=== PATIENT | male | born 1960 | race Caucasian/White ===

== ENCOUNTER 2024-06-07 08:44 | Day surgery (SDC) | payer BC ==
[2024-06-05 15:10] LABS: Absolute Basophils 0.1 K/uL (0-0.5); Absolute Eosinophils 0.1 K/uL (0-0.5); Absolute Lymphocytes (CBC) 1.7 K/uL (0.7-4.9); Absolute Monocytes 0.8 K/uL (0.1-1.3); Absolute Neutrophil 4.7 K/uL (1.8-8.0); Basophils % 0.7 % (0-1.3); Eosinophils % 1.9 % (0-4.4); Hematocrit 49.5 % (39.6-49.0); Hemoglobin 16.5 g/dL (13.6-17.9); Lymphocytes % 22.9 % (15.3-44.8); MCHC 33.3 g/dL (32.0-36.0); MCV 93.2 fL (80-100); MPV 8.4 fL (7.6-11.3); Monocytes % 11.2 % (3.3-12.3); Neutrophils % 63.3 % (41.7-73.7); Nucleated Red Blood Cells % 0.1 % (0-0); Platelets 194 thou/uL (152-406); RBC Red Blood Cell Count 5.31 M/uL (4.33-5.43); Red Cell Distribution Width 13.7 % (12.1-15.2)
[2024-06-05 15:16] LABS: Anion Gap 8.8 mEq/L (5.0-15.0); Potassium 3.8 mEq/L (3.5-5.1)
[2024-06-07] MEDS ORDERED: Ringers Lactate 1,000 ML IV ONE (09:03)
[2024-06-07] MEDS ORDERED: ONDANSETRON 4 MG/2 ML VIAL ONE (09:44)
[2024-06-07] MEDS ORDERED: ROCURONIUM 50 MG/5 ML VIAL IV ONE (09:44)
[2024-06-07] MEDS ORDERED: LIDOCAINE 2% MPF 5 ML VIAL ONE (09:44)
[2024-06-07] MEDS ORDERED: MIDAZOLAM HCL 2 MG/2 ML INJ ONE (09:44)
[2024-06-07] MEDS ORDERED: FENTANYL CITR 100 MCG/2 ML ONE (09:44)
[2024-06-07] MEDS ORDERED: propofoL 200 MG/20 ML VIAL IV ONE (09:44)
[2024-06-07] MEDS ORDERED: HYDROMORPHONE HCL 1 MG/ML INJ ONE (10:10)
[2024-06-07] MEDS ORDERED: SUGAMMADEX SODIUM 200 MG/2 ML VIAL IV ONE (10:10)
[2024-06-07] MEDS: CEFAZOLIN SODIUM 2 GM/VIAL ONE (10:32)
[2024-06-07] MEDS ORDERED: dexAMETHasone 10 MG/ML VIAL ONE (10:44)
[2024-06-07] MEDS ORDERED: GLYCOPYRROLATE 0.2 MG/ML SYR ONE (10:46)
[2024-06-07] MEDS ORDERED: EPHEDRINE SULF 50 MG/ML VIAL ONE (10:57)
[2024-06-07] MEDS: LIDOCAINE HCL/EPINEPHRINE 20 ML MDV ONE (10:58)
--- NOTE | 2024-06-07 11:42 | P.OP ---
Preoperative diagnosis: Multiple Ventral Abdominal Hernias Postoperative diagnosis: Multiple Ventral Abdominal Hernias Primary procedure: Laparoscopic Ventral Henria Repairs with Mesh Anesthesia: GETA + Local Estimated blood loss: <5cc Specimen: none Findings: ~ 2cm umbilical, 1cm epigastric hernias - adipose incarcerated Complications: None Implants: Bard Ventralite ST x 2, Sorbafix, Absobatack Transferred to: Recovery Room Condition: Good
[2024-06-07] MEDS: HYDROMORPHONE HCL 1 MG/ML INJ ONE (12:01)
[2024-06-07] MEDS: HYDROCODONE/APAP 10/325 TAB ONE (13:00)
[2024-06-07 14:25] VITALS: BP 119/65; TEMP 97.9; O2SAT 96
--- NOTE | 2024-06-07 23:01 | OP ---
Date of Procedure: 06/07/2024 Surgeon: Jason Jha MD, Preoperative Diagnosis: Multiple ventral incisional midline abdominal wall hernias. Postoperative Diagnosis: Multiple ventral incisional midline abdominal wall hernias. Procedures Performed: Laparoscopic repair of multiple ventral hernias. 1.Epigastric, incisional. 2.Umbilical, incisional. Anesthesia: General endotracheal plus local with 1% lidocaine with epinephrine. Estimated Blood Loss: 5 cc. Specimen: None. Findings: Approximately 2 cm incisional umbilical hernia with incarcerated adipose tissue and a 1 cm epigastric hernia with incarcerated adipose tissue. Complications: None. Implants: Bard Ventralight ST mesh with Echo Positioning System 11.4 cm mesh utilized. 2 total mesh es were utilized of the same size. SorbaFix absorbable fixation tacks and AbsorbaTack absorbable fix ation tacks were both utilized. Disposition: The patient was transferred to recovery room in good condition. Procedure In Detail: After informed consent was obtained, patient was brought to the operating room, prepped and draped in the usual sterile fashion. After adequate anesthesia was achieved. I anesthe tized an area in the left upper quadrant down to subcutaneous tissue. A 5 mm 0-degree optical trocar was introduced in the abdomen without incident or complication. Insufflation was obtained to 15 mmH g at this time. There was no injury to vital structures upon entering the abdomen. Additional troca r was placed in the left mid abdomen. This was 12 mm trocar placed under direct vision without incid ent or complication. At this point, I swept back all preperitoneal fat and removed incarcerated adip ose tissue from the umbilical as well as the epigastric hernia, which were both incisional hernias fr om previous surgery. After this was swept back and allowed for appropriate landing zone using the [employer] gaSure device, I deployed a 11.4 cm Bard Ventralight mesh with Echo Positioning System in the umbilic al position. I then secured to the anterior abdominal wall using absorbable tacks of combination of both SorbaFix and AbsorbaTack into the abdominal wall with good apposition of the mesh. At this poin t, I deployed a second mesh of the same configuration of Bard Ventralight ST mesh with Echo Positioni ng System at the epigastric region. I similarly secured to the anterior bowel wall using a combinati on of AbsorbaTack and SorbaFix absorbable fixation tacks after deploying the balloon deployment syste m. I then found both balloon deployment systems on the back table to be intact. No hemostatic measu res were required and the mesh in both positions was with good apposition of the abdominal wall. I bar mosquera closed the 12 mm trocar site using a Caroline suture passer with a #1 Vicryl in interrupte d fashion with good approximation of tissues. The abdomen was then desufflated under direct visualiz ation without incident or complication. All remaining trocars were removed. All skin edges were the n copiously irrigated and closed with a 4-0 Monocryl in a running fashion. Dermabond was placed over top. The patient tolerated the procedure without incident or complication and transferred to PACU i n good condition. All counts were correct at the end of the case. CLEMENTINE/SHELBI Voice ID: [id number] Report ID: [id number]
--- NOTE | 2024-06-10 12:12 | EKG ---
Test Date: 2024-06-05 Test Time: 15:25:06 Dealer Card Room: [facility] MEASUREMENT RESULTS: Intervals: Rate: 68 IN: 152 QRSD: 112 QT: 404 QTc: 429 Equality: P: 66 IN: 152 QRS: -48 T: 44 INTERPRETIVE STATEMENTS: Normal sinus rhythm Left axis deviation Abnormal ECG No previous ECG available for comparison Electronically Signed On 06-10-24 12:05:08 ORDER PULLER by Marco Loera
== END 2024-06-07 13:58 | disposition home or self-care (01) ==
LOC: OR 08:44
PROVIDERS: ATTEND Surgery
PROC: 0WUF4JZ Supplement Abdominal Wall with Synthetic Substitute, Percutaneous Endoscopic Approach (ICD-10-PCS; principal; 2024-06-07 11:15)
DX: K43.2 Incisional hernia without obstruction or gangrene (principal)
CPT/HCPCS: 85025; 80048; 36415; 49594; J2704; J2003; J2250; J3010; J1100; J1171 ×2; J2405; J7120; C1781; 93005